=== PATIENT | female | born 1990 | race American Indian/Alaskan Native ===

== ENCOUNTER 2025-01-11 14:48 | Emergency (ER) | payer OTHER ==
[~2025-01-11] VITALS: Ht 165.1 cm; Wt 149.1 kg
[2025-01-11] MEDS ORDERED: DEPA1TAB3 PO (14:56)
[2025-01-11] MEDS ORDERED: PROZ10CA11 PO (14:56)
[2025-01-11 16:08] VITALS: BP 145/97; TEMP 98.1; O2SAT 98
== END 2025-01-11 16:29 | disposition home or self-care (01) ==
LOC: M ED 14:48
DX: S93.402A Sprain of unspecified ligament of left ankle, initial encounter (principal); Y92.241 Library as the place of occurrence of the external cause; Y93.9 Activity, unspecified; Y99.9 Unspecified external cause status; W10.8XXA Fall (on) (from) other stairs and steps, initial encounter; M77.32 Calcaneal spur, left foot; F31.9 Bipolar disorder, unspecified; F41.9 Anxiety disorder, unspecified; Z88.6 Allergy status to analgesic agent; Z91.018 Allergy to other foods; Z79.899 Other long term (current) drug therapy

== ENCOUNTER → 2025-02-07 | Outpatient (CLI) | payer OTHER ==
[~2025-02-07] MED LIST: DEPA1TAB3 PO; PROZ10CA11 PO
[2025-02-07 11:10] LABS: PLATELET COUNT, AUTOMATED 259 10^3/uL (150-450)
[2025-02-07 13:21] LABS: VALPROIC ACID (DEPAKOTE) 28.9 UG/ML (50.0-100.0)
[2025-02-07 13:23] LABS: ALT/SGPT 21 U/L (7.0-40); AST/SGOT 18 U/L (<34); CALCIUM LEVEL 8.9 MG/DL (8.5-10.1); CARBON DIOXIDE LEVEL 25 MMOL/L (20-31); CHLORIDE LEVEL 107 MMOL/L (98-107); CHOLESTEROL LEVEL 163 MG/DL (<200); CHOLESTEROL RISK RATIO 3.54 (<5); CREATININE FOR GFR 0.78 MG/DL (0.55-1.30); GLOMERULAR FILTRATION RATE > 90.0 (>60); LDL CHOLESTEROL 99.0 MG/DL (<100); NON-HDL-C 117.0 MG/DL; POTASSIUM SERUM 4.6 MMOL/L (3.5-5.1); SODIUM LEVEL 144 MMOL/L (136-145); TRIGLYCERIDES LEVEL 90 MG/DL (<150)
== END ==
LOC: M LAB 10:35
PROVIDERS: ATTEND Student in an Organized Health Care Education/Training Program
DX: F31.9 Bipolar disorder, unspecified (principal)